=== PATIENT | female | born 1945 | race Caucasian/White ===

== ENCOUNTER → 2017-08-12 | Outpatient (CLI) | payer OTHER ==
[~2017-08-12] MED LIST: ADULT LOW DOSE81 MG; ASPIR 8181 MG PO; AZITHROMYCIN 2250 MG PO; LEVAQUIN 500 M500 MG PO; LISINOPRIL2.5 MG PO; LIVALO1 MG; NEURONTIN100 MG PO; NITROGLYCERIN0.4 MG SL; NORCO 5-325 TA1 EACH PO; PAIN & FEVER325 MG PO; PLAVIX 75 MG TA75 MG PO; PRINIVIL20 MG PO; REPATHA SY140 MG/1 M INJECTION; SYNTHROID100 MC1 PO; TESSALON200 MG PO; TOPROL XL50 MG PO; VENTOLIN HFA 1818 GM INH; VITAMIN D1000 UNI1; ZETIA10 MG PO; ZOLOFT100 MG; ZYRTEC
[2017-08-12 09:43] LABS: ABSOLUTE BASOPHILS 0.1 thou/uL (0.0-0.2); ABSOLUTE EOSINOPHILS 0.2 thou/uL (0.0-0.7); ABSOLUTE LYMPHOCYTES 3.6 thou/uL (0.8-5.3); ABSOLUTE MONOCYTES 0.8 thou/uL (0.0-1.2); ABSOLUTE NEUTROPHILS 3.5 thou/uL (1.6-8.1); BASOPHILS 0.8 %; EOSINOPHILS 2.8 %; HEMATOCRIT 38.9 % (37.0-47.0); HEMOGLOBIN 12.9 gm/dL (12.0-15.0); MCH 28.6 pg (26.0-34.0); MCHC 33.2 g/dL (28.0-37.0); MCV 86.2 fL (80.0-100.0); MONOCYTES 9.9 %; MPV 7.2 fl. (7.2-11.1); NUCLEATED RBCS 0 /100WBC; PLATELET COUNT* 374 thou/uL (150-400); POLYS 42.5 %; RBC 4.52 mil/uL (4.20-5.00); RDW-CV 14.4 % (10.5-14.5); WBC 8.3 thou/uL (4.0-11.0)
[2017-08-12 09:54] LABS: ALBUMIN 3.7 g/dL (3.4-5.0); ALKALINE PHOSPHATASE 83 U/L (46-116); BUN 22 mg/dL (7-18); CALCIUM 8.6 mg/dL (8.5-10.1); CHLORIDE 104 mmol/L (98-107); CHOLESTEROL 383 mg/dL (<200); CO2 30 mmol/L (21-32); DIRECT BILIRUBIN < 0.1 mg/dL (<0.1-0.3); GLUCOSE 99 mg/dL (70-99); HDL CHOLESTEROL 36 mg/dL (>40); LDL CHOLESTEROL 267 mg/dL (<100); POTASSIUM 3.8 mmol/L (3.5-5.1); SGOT 14 U/L (15-37); SGPT 19 U/L (30-65); TC:HDL 10.6 Ratio (Not establshd); TOTAL BILIRUBIN 0.2 mg/dL (<0.1-1.0); TOTAL PROTEIN 7.3 g/dL (6.4-8.2); TRIGLYCERIDE 400 mg/dL (<150); VLDL 80 mg/dL (<40)
[2017-08-12 09:55] LABS: SERUM ASSESSMENT Clear
[2017-08-12 10:12] LABS: ANION GAP 7 mmol/L (7-16); SODIUM 141 mmol/L (136-145)
== END ==
LOC: M.LAB 09:20
PROVIDERS: Internal Medicine Cardiovascular Disease
DX: E78.00 Pure hypercholesterolemia, unspecified (principal); I25.10 Atherosclerotic heart disease of native coronary artery without angina pectoris; E78.5 Hyperlipidemia, unspecified

== ENCOUNTER 2018-03-13 22:12 | Inpatient (IN) | payer OTHER ==
[~2018-03-13] VITALS: Ht 152.4 cm; Wt 64.4 kg
[~2018-03-13 22:12] MED LIST changes: -ASPIR 8181 MG PO; -NEURONTIN100 MG PO; -PRINIVIL20 MG PO; -REPATHA SY140 MG/1 M INJECTION
[2018-03-13 22:21] VITALS: BP 161/76
[2018-03-13 22:34] LABS: ABSOLUTE BASOPHILS 0.1 thou/uL (0.0-0.2); ABSOLUTE EOSINOPHILS 0.3 thou/uL (0.0-0.7); ABSOLUTE LYMPHOCYTES 3.2 thou/uL (0.8-5.3); ABSOLUTE MONOCYTES 1.3 thou/uL (0.0-1.2); ABSOLUTE NEUTROPHILS 5.8 thou/uL (1.6-8.1); BASOPHILS 1.3 %; EOSINOPHILS 2.5 %; HEMATOCRIT 40.1 % (37.0-47.0); HEMOGLOBIN 13.2 gm/dL (12.0-15.0); LYMPHOCYTES 30.3 %; MCH 27.5 pg (26.0-34.0); MCHC 32.9 g/dL (28.0-37.0); MCV 83.5 fL (80.0-100.0); MONOCYTES 11.8 %; NUCLEATED RBCS 0 /100WBC; PLATELET COUNT* 372 thou/uL (150-400); POLYS 54.1 %; RBC 4.81 mil/uL (4.20-5.00); RDW-CV 13.8 % (10.5-14.5); WBC 10.7 thou/uL (4.0-11.0)
[2018-03-13 22:42] LABS: ANION GAP 6 mmol/L (7-16); BUN 20 mg/dL (7-18); CALCIUM 8.6 mg/dL (8.5-10.1); CHLORIDE 102 mmol/L (98-107); CO2 31 mmol/L (21-32); CREATININE 1.1 mg/dL (0.6-1.3); GLUCOSE 112 mg/dL (70-99); POTASSIUM 3.7 mmol/L (3.5-5.1); SODIUM 139 mmol/L (136-145)
[2018-03-13 22:53] LABS: ALBUMIN 3.9 g/dL (3.4-5.0); ALKALINE PHOSPHATASE 103 U/L (46-116); LIPASE 194 U/L (73-393); NT-PRO BRAIN NAT PEPTIDE 317 pg/mL (<300); SGOT 14 U/L (15-37); SGPT 22 U/L (30-65); TOTAL BILIRUBIN 0.2 mg/dL (<0.1-1.0); TOTAL PROTEIN 7.8 g/dL (6.4-8.2); TROPONIN-I LEVEL <0.06 ng/mL (<0.06)
[2018-03-13 23:42] VITALS: BP 153/65
[2018-03-14] VITALS (15 sets, daily range): BP systolic 124–169; BP diastolic 55–70
[2018-03-14] MEDS ORDERED: NEURONTIN100 MG PO (02:21)
[2018-03-14] MEDS ORDERED: REPATHA SY140 MG/1 M INJECTION (02:23)
--- NOTE | 2018-03-14 05:12 | NUR ---
RECEIVED REPORT FROM SECURITY INCIDENT RESPONSE SPECIALIST, MAURILIO, AT 2320. PT ARRIVED TO UNIT VIA CART AT 2340. PT AAOX4, ORIENTED TO ROOM AND CALL LIGHT. SPOUSE AT BEDSIDE. PT VOICED PARTIAL RELIEF OF CHEST PAIN FROM NITRO PASTE. NURSING ASSESSMENT COMPLETED. PT EDUCATED ON IMPORTANCE OF BEING NPO AFTER MIDNIGHT FOR CARDIOLOGY CONSULT. PT VOICED UNDERSTANDING. CALL LIGHT WITHIN REACH. HOURLY ROUNDING COMPLETED, TRACING SINUS RHYTHM ON INSPECTOR ELEVATORS.
--- NOTE | 2018-03-14 07:15 | NUR ---
change of shift bedside report given patient seen in bed asleep assumed patient care
--- NOTE | 2018-03-14 10:44 | EKG ---
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: MANDA : 1945 Requested By: Chet Schmidt Order Number: [id number] MD: Satnam Larios Measurements Intervals [place] Rate: 70 P: 42 PA: 148 QRS: 46 QRSD: 98 T: 56 QT: 417 QTc: 450 Interpretive Statements Sinus rhythm Borderline repolarization abnormality Baseline wander in lead(s) III Compared to ECG 06/22/2013 07:44:04 no change Electronically Signed On 03-14-2018 10:44:15 CDT by Satnam Larios [email or web address] <ELECTRONICALLY SIGNED> By: Satnam Larios MD, [facility] 03/14/18 1044 2217 2217 Satnam Larios MD, [facility] /EPI
[2018-03-14 11:16] LABS: APTT 27.1 Seconds (25.0-31.3)
--- NOTE | 2018-03-14 13:13 | NUR ---
Pt out of room for cath, will f/u later
--- NOTE | 2018-03-14 15:36 | EKG ---
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
--- NOTE | 2018-03-14 17:10 | CARD ---
[address] [address] CARDIAC CATH REPORT Name: KIKE SPRAGUE Room: [address] IN [facility].#: [id number] Admission: 03/13/18 Attend Phys: Kentrell Nicholson MD Discharge: Date of : 45 Report #: [id number] THIS REPORT FOR: //name// APPROVED REPORT Study performed: 03/14/2018 12:35:09 Patient Details Patient Status: In-Patient Room #: 202 The patient is a 72 year-old female Event Personnel Satnam Larios Interior Assemblies Developer Prover, Marilyn Bunn RN Java Lead Engineer, Marlee Sandoval Monitor, Rui Mcgraw (R) Scrub Procedures Performed Art Access - R femoral artery* Left Heart Cath w/or w/o Coronaries [id number] [facility] w/wo Plasty Single RCA [id number] , Left Ventriculogram Indication Unstable angina Risk Factors Arterial Hypertension, Hypercholesterolemia, Coronary Artery Disease Previous Procedures/Diagnoses Previous PCI Admission/Lab Medications/Medications given during procedure Heparin Unfract. Procedure Narrative The patient was brought electively to the Cardiac Catheterization Laboratory and was prepped and draped in a sterile manner. The right femoral was infiltrated with 2% Lidocaine subcutaneous anesthesia. A 6fr Ultimum Sheath sheath was inserted into the right femoral artery. Coronary angiography was performed using coronary diagnostic catheters. The right coronary system was accessed and visualized with a 6fr JR 4 catheter. The left coronary system was accessed and visualized with a 6fr JL 4 catheter. The left ventricle was accessed and visualized with a 6fr Pigtail catheter. Left ventricular/Aortic Valve gradient assessed via catheter pullback. Left ventriculogram was performed in DIEHL projection. Closure device was deployed with a [address] [place] [address] CARDIAC CATH REPORT Name: KIKE SPRAGUE Room: [address]#: [id number] Admission: 03/13/18 Attend Phys: Kentrell Nicholson MD Discharge: Date of : 45 Report #: [id number] Angioseal STS 6Fr. The patient tolerated the procedure well and there were no complications associated with the procedure. There was no hematoma. Intraoperative Conscious Sedation Sedation start time: 13:32 Case end Time: 14:04 Fentanyl 25 mcg Versed 2 mg Fluoro Time: 3.7 minutes Dose: DAP 70697 cGycm2 709.85 mGy Contrast Type and Amount: Omnipaque 290 ml Coronary Angiography The patient's coronary anatomy is right dominant. Diagnostic Cath Left Main 40% ostial and 40% distal stenosis noted LAD stent in proximal lad had no restenosis. Mid and distal lad had a narrow lumen consistent with diffuse cad. A 70% mid and 70% distal stenosis was noted in the lad Circumflex 0% stenosis Right Coronary long stent noted in the proximal and mid rca. 90% restenosis noted in the mid portion of the stent. 60% stenosis noted at the acute margin of the vessel Left Ventriculography The left ventricle is normal in size with normal contractility. The left ventricular ejection fraction is estimated to be 60-65%. Left ventricular wall motion abnormalities are not present. There is 1+ mitral insufficiency. Hemodynamics The aortic pressure is 118/44 mmHg with a mean of mmHg. The left ventricular pressure is 184/25 mmHg with a mean of mmHg. The left ventricular end diastolic pressure is 25 mmHg. There was no gradient across the aortic valve upon pullback. Pullback from the left ventricle to the aorta revealed no gradient across the aortic valve. PCI Technique Lesion Anticoagulation was achieved with Heparin. Patient was preloaded with Plavix. Percutaneous coronary intervention was performed on the mid right coronary artery. The lesion stenosis prior to intervention was 90% with AGUSTÍN 3 flow. A 6Fr JR 4.0 SH Guide Catheter was used to engage the RCA ostium. A IG: JOHN 190cm [place] [address] CARDIAC CATH REPORT Name: KIKE SPRAGUE Room: [address]#: [id number] Admission: 03/13/18 Attend Phys: Kentrell Nicholson MD Discharge: Date of : 45 Report #: [id number] used to cross the lesion. BALLOON DILATION A Balloon catheter Trek RX 2.5 X 8 was inserted and inflated up to 16.00atm for 17seconds. Repeat angiography revealed the following post-dilatation results: 50% stenosis. STENT DEPLOYMENT A drug-eluting stent Xience Alpine RX 2.75X15 was inserted and inflated up to 9.00atm for 8seconds. Repeat angiography revealed the following post-stent deployment results: 0% stenosis. Additional Inflation: 10.00atm for 12seconds. Additional Inflation: 15.00atm for 10seconds. 17 TORIBIO x 14 seconds 20 TORIBIO x 8 seconds Final angiography reveals 0 % stenosis with AGUSTÍN 3 flow. Conclusion 1. no restenosis noted of a stent in the proximal lad, although the mid and distal lad had a narrow lumen with a 70% stenosis noted in the mid lad, and a 70% stenosis noted in the distal lad 2. 90% restenosis noted in the mid portion of a stent in the mid rca 3. successful placement of a single drug eluting stent in the mid rca Recommendations Cardiac Rehabilitation Referral Aggressive Medical Therapy Medications Administered Clopidogrel <ELECTRONICALLY SIGNED> By: Satnam Larios MD, [facility] 03/14/181708 08 08Satnam Larios MD, [facility] /INF
--- NOTE | 2018-03-14 17:21 | NUR ---
ASSUMED CARE OF PT AT 1600 FROM JOAN PARTIDA. READ AND AGREE WITH HER ASSESSMENT. PT HAS CONT TO LAY FLAT R/T POST CATH. SHE HAS NO C/O PAIN. FAMILY IS AT BEDSIDE. PT STATES SHE FEELS BETTER THAN SHE HAS FOR AWHILE. BED IS IN LOW POSITION CALL LIGHT IS IN REACH.
--- NOTE | 2018-03-14 19:45 | NUR ---
RECEIVED REPORT AND ASSUMED CARE OF PT, ASSESSMENT COMPLETED. RT GROIN DRSG SATURATED, NO NEW DRAINAGE. INSTRUCTED ON MONITORING OF SITE FOR INCREASE DRAINAGE, FEELING WARM OR IF SHE FEELS WOZZY. TELEMETRY ON SHOWING SR. PT STATES SHE IS TIRED AND WANTS TO TAKE A NAP. WILL CONT TO MONITOR AND ASSIST NEEDED.
[2018-03-15] VITALS: BP 126/54
[2018-03-15 04:00] VITALS: BP 134/56
[2018-03-15 05:10] LABS: HEMATOCRIT 35.2 % (37.0-47.0); HEMOGLOBIN 11.6 gm/dL (12.0-15.0); MCH 27.9 pg (26.0-34.0); MCV 84.6 fL (80.0-100.0); MPV 7.3 fl. (7.2-11.1); RBC 4.16 mil/uL (4.20-5.00); RDW-CV 13.9 % (10.5-14.5)
[2018-03-15 05:36] LABS: CHOLESTEROL 345 mg/dL (<200); HDL CHOLESTEROL 34 mg/dL (>40); LDL CHOLESTEROL 260 mg/dL (<100); TC:HDL 10.1 Ratio (Not establshd); TRIGLYCERIDE 255 mg/dL (<150); TROPONIN-I LEVEL 0.17 ng/mL (<0.06); VLDL 51 mg/dL (<40)
[2018-03-15 05:44] LABS: SERUM ASSESSMENT Slight Lipemia
--- NOTE | 2018-03-15 06:52 | NUR ---
SLEPT WELL TONIGHT. RT GROIN DRSG CHANGED. NO BLEEDING FROM PUNCTURE SITE, FIRM ECCHYMOTIC AREA NOTED. BANDAID APPLIED. PT HAS REMAINED IN BED ALL NIGHT EXCEPT TO BR X1. IVF CONVERTED TO SL. TELEMETRY SHOWING SR/SB. PT STATES "YOU DON'T EVEN KNOW HOW MUCH BETTER I FEEL". HS GOALS OF REST AND SAFETY ACHIEVED. HOURLY ROUNDING OBSERVED.
--- NOTE | 2018-03-15 07:15 | NUR ---
CHNAGE OF SHIFT BEDSIDE REPORT GIVEN PATIENT SEEN AT BEDSIDE, IN BED ASLEEP ASSUMED PATIENT
[2018-03-15 08:00] VITALS: BP 152/52
--- NOTE | 2018-03-15 11:09 | EKG ---
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1945 Requested By: Satnam Larios Order Number: [id number] MD: Gualberto Resendiz Measurements Intervals [place] Rate: 65 P: 38 NV: 154 QRS: 17 QRSD: 88 T: 43 QT: 437 QTc: 455 Interpretive Statements Sinus rhythm Low voltage, precordial leads Compared to ECG 03/14/2018 14:58:57 Low QRS voltage now present Electronically Signed On 03-15-2018 11:09:47 CDT by Gualberto Resendiz [email or web address] <ELECTRONICALLY SIGNED> By: Gualberto Resendiz MD, [facility] 03/15/18 9999 0840 0840 Gualberto Resendiz MD, [facility] /EPI
--- NOTE | 2018-03-15 11:15 | CON ---
[address] [address] CONSULTATION Name: KIKE SPRAGUE Room: [address] IN [facility]#: [id number] Admission: 03/13/18 Attend Phys: Kentrell Nicholson MD Discharge: Date of : 45 Report #: [id number] THIS REPORT FOR: //name// CC: Kentrell Gutierrez DO HISTORY OF PRESENT ILLNESS: The patient is a 72-year-old white female who I was asked to see in the hospital today after she complained of chest pain. The history was obtained from the patient as well as some old records. The patient noted that in about 1999, she is having chest pain. She apparently had a single coronary stent placed by Dr. Olmedo at [facility]. She had been followed by the [facility]. She was actually admitted to [place] in June 2013 after an episode of chest pain. I saw her in consultation. She ruled in for a non-STEMI with a troponin of 2.86. I performed a cardiac catheterization from the right femoral artery. She developed spasm of the right radial artery and therefore the procedure was performed from the right femoral artery. She was found to have normal left ventricular function with an ejection fraction of 60%. There was a 90% narrowing of the proximal right coronary artery. There was a stent in the proximal LAD that had no restenosis. The diagonal branch had an 80% ostial stenosis. I then placed a drug-eluting stent in the proximal right coronary artery. She tolerated this well. I last saw her in the clinic in August when she was doing well. Her last nuclear stress test in 2016, showed no significant ischemia. However, recently she has been having recurrent chest pain. It is not necessarily related to exertion or meals. She felt a tightness and it made her short of breath. It is usually relieved with nitroglycerin. She has had no nausea or sweats. The pain is not related to food. She has had no belch with the episode. Denied any fever, cough, or bleeding. She has had no trauma or rash in her chest. She does become short of breath with exertion. She notes occasional flutter in her chest, but no syncope. After an episode last night, she came to the hospital and was admitted. PAST MEDICAL HISTORY: Significant for tonsillectomy, appendectomy, cataract extraction, hypertension, and hyperlipidemia. She was intolerant of statin drugs, now goes to the [facility] at and receives Repatha injections. There is no history of diabetes. CURRENT MEDICATIONS: Consist of Plavix, Repatha, Synthroid, lisinopril, metoprolol, Singulair, Zoloft, and TriCor. ALLERGIES: She has intolerance to PENICILLIN AND CODEINE. FAMILY HISTORY: Positive for heart disease. SOCIAL HISTORY: She is . She and her live in [place]. Neither of one is working at this time. She [place] [address] CONSULTATION Name: KIKE SPRAGUE Room: [address]#: [id number] Admission: 03/13/18 Attend Phys: Kentrell Nicholson MD Discharge: Date of : 45 Report #: [id number] alcohol abuse. REVIEW OF SYSTEMS: She has had no history of stroke, previous carotid Doppler study showed no significant stenosis. She has had asthma previously. No history of peptic ulcer disease, liver disease, kidney disease, cancer, psychiatric illness, or chronic skin condition. PHYSICAL EXAMINATION: GENERAL: Revealed an elderly female, lying in bed. She appeared in no distress. VITAL SIGNS: She had a blood pressure of 150/60, pulse 60, she is afebrile. HEENT: She was anicteric. Conjunctivae are pink. Mucous membranes are moist. NECK: Veins nondistended. No carotid bruits. Neck supple. CHEST: Clear to auscultation. HEART: Regular rate and rhythm. ABDOMEN: Soft and nontender. EXTREMITIES: Had no edema. Posterior tibial pulse 1+ bilaterally. SKIN: Warm and dry. NEUROLOGIC: Nonfocal. Her ECG showed a sinus rhythm, nonspecific ST-segment changes. Her x-ray last night showed normal heart size, calcified granuloma. Her lab work, sodium 139, creatinine 1.1, glucose 112. Liver function studies were normal. Troponin 0.06. Lab work in August included cholesterol 383, triglyceride 400, HDL 36, LDL 267. White blood cell count 10.7, hemoglobin 13.2, platelet count 372. IMPRESSION AND RECOMMENDATIONS: 1. Unstable angina. Recommend repeat cardiac catheterization. 2. Hypertension. The patient has been on a beta tori and AMY inhibitor. 3. Hyperlipidemia. The patient is in the Lipid Clinic at . <ELECTRONICALLY SIGNED> By: Satnam Larios MD, [facility] 03/15/18 1115 0946 1619Daleah Larios MD, FACC /nt
[2018-03-15 11:19] VITALS: BP 132/69
[2018-03-15] MEDS ORDERED: PRINIVIL20 MG PO (11:31)
[2018-03-15 12:10] VITALS: BP 161/63
[2018-03-15] MEDS ORDERED: ASPIR 8181 MG PO (12:17)
--- NOTE | 2018-03-15 12:35 | NUR ---
DISCHARGE TO HOME INSTRUCTIONS GIVEN, ACKNOWLEDGED, AND SIGNED COPIES GIVEN IV AND HEART MONITOR REMOVED PERSONAL BELONGINGS RETURNED ASSITED OUT VIA WC TO WAITING CAR, GOOD CONDITION
== END 2018-03-15 12:35 | disposition home or self-care (01) | DRG 247 ==
LOC: M.ERS 22:12 → M.TBA-ER 23:06 → M.2W 23:06
PROVIDERS: Emergency Medicine Emergency Medical Services; Internal Medicine Cardiovascular Disease; ADMIT Internal Medicine
PROC: B2151ZZ Fluoroscopy of Left Heart using Low Osmolar Contrast (ICD-10-PCS; principal; 2018-03-14)
PROC: 4A023N7 Measurement of Cardiac Sampling and Pressure, Left Heart, Percutaneous Approach (ICD-10-PCS; principal; 2018-03-14)
PROC: B2111ZZ Fluoroscopy of Multiple Coronary Arteries using Low Osmolar Contrast (ICD-10-PCS; principal; 2018-03-14)
PROC: 027034Z Dilation of Coronary Artery, One Artery with Drug-eluting Intraluminal Device, Percutaneous Approach (ICD-10-PCS; principal; 2018-03-14)
DX: T82.855A Stenosis of coronary artery stent, initial encounter (principal); I25.110 Atherosclerotic heart disease of native coronary artery with unstable angina pectoris; I50.32 Chronic diastolic (congestive) heart failure; I13.0 Hypertensive heart and chronic kidney disease with heart failure and stage 1 through stage 4 chronic kidney disease, or unspecified chronic kidney disease; E78.00 Pure hypercholesterolemia, unspecified; N18.3 Chronic kidney disease, stage 3 (moderate); E05.00 Thyrotoxicosis with diffuse goiter without thyrotoxic crisis or storm; J32.9 Chronic sinusitis, unspecified; Y83.8 Other surgical procedures as the cause of abnormal reaction of the patient, or of later complication, without mention of misadventure at the time of the procedure; Y92.89 Other specified places as the place of occurrence of the external cause; Z90.49 Acquired absence of other specified parts of digestive tract; Z87.891 Personal history of nicotine dependence; Z79.02 Long term (current) use of antithrombotics/antiplatelets; Z79.899 Other long term (current) drug therapy; Z88.0 Allergy status to penicillin; Z88.5 Allergy status to narcotic agent; Z82.49 Family history of ischemic heart disease and other diseases of the circulatory system

== ENCOUNTER → 2019-02-07 | Outpatient (CLI) | payer OTHER ==
[~2019-02-07] MED LIST changes: +ASPIR 8181 MG PO; +NEURONTIN100 MG PO; +PRINIVIL20 MG PO; +REPATHA SY140 MG/1 M INJECTION
--- NOTE | 2019-02-07 15:24 | 2DMMODE ---
[place] [address] 2 D/M-MODE ECHOCARDIOGRAM Name: KIKE SPRAGUE Room: [facility]#: [id number] Admission: 02/07/19 Attend Phys: Aissatou Piper MD Discharge: Date of : 45 Date of Service: 02/07/19 1524 Report #: [id number] THIS REPORT FOR: //name// APPROVED REPORT Study performed: 02/07/2019 13:54:46 EXAM: Comprehensive 2D, Doppler, and color-flow Echocardiogram BSA: 1.58 HR: 71 bpm BP: 117/78 mmHg Other Information Study Quality: Good Indications CAD Chemo 2D Dimensions IVSd: 10.39 (7-11mm) LVOT Diam: 20.37 (18-24mm) LVDd: 39.87 mm PWd: 9.32 (7-11mm) Ascending Ao: 31.69 (22-36mm) LVDs: 21.30 (25-40mm) Aortic Root: 24.85 mm Volumes Left Atrial Volume (Systole) LA ESV Index: 16.80 mL/m2 Aortic Valve AoV Peak Aurelio.: 1.25 m/s AO Peak Gr.: 6.22 mmHg LVOT Max P.90 mmHg AO Mean Gr.: 3.04 mmHg LVOT Mean P.43 mmHg LVOT Max V: 1.11 m/s AO V2 VTI: 28.10 cm LVOT Mean V: 0.71 m/s NGA (VTI): 3.24 cm2 LVOT V1 VTI: 27.92 cm Mitral Valve E/A Ratio: 1.16 MV Decel. Time: 171.97 ms MV E Max Aurelio.: 0.82 m/s MV PHT: 49.87 ms MVA (PHT): 4.41 [place] [address] 2 D/M-MODE ECHOCARDIOGRAM Name: KIKE SPRAGUE Room: [facility]#: [id number] Admission: 02/07/19 Attend Phys: Aissatou Piper MD Discharge: Date of : 45 Date of Service: 02/07/19 1524 Report #: [id number] TDI E/Lateral E': 7.45 E/Medial E': 8.20 Medial E' Aurelio.: 0.10 m/s Lateral E' Aurelio.: 0.11 m/s Pulmonary Valve PV Peak Aurelio.: 0.90 m/s PV Peak Gr.: 3.27 mmHg Tricuspid Valve RAP Estimate: 5.00 mmHg TR Peak Gr.: 20.60 mmHg RVSP: 25.60 mmHg PA Pressure: 25.60 mmHg Left Ventricle The left ventricle is normal size. There is normal LV segmental wall motion. There is normal left ventricular wall thickness. Left ventricular systolic function is normal. LVEF is 65-70%. Transmitral Doppler flow pattern suggests impaired LV relaxation. Right Ventricle The right ventricle is normal size. The right ventricular systolic function is normal. Atria The left atrium size is normal. The right atrium size is normal. Aortic Valve Aortic valve is mildly calcified. No aortic regurgitation is present. There is no aortic valvular stenosis. Mitral Valve The mitral valve is normal in structure. Mild mitral regurgitation. No evidence of mitral valve stenosis. Tricuspid Valve The tricuspid valve is normal in structure. Mild tricuspid regurgitation. No pulmonary hypertension. Pulmonic Valve The pulmonary valve is normal in structure. There is no pulmonic valvular regurgitation. Great Vessels The aortic root is normal in size. IVC [place] [address] 2 D/M-MODE ECHOCARDIOGRAM Name: KIKE SPRAGUE Room: [facility] Leonardo#: [id number] Admission: 02/07/19 Attend Phys: Aissatou Piper MD Discharge: Date of : 45 Date of Service: 02/07/19 1524 Report #: [id number] collapses >50% with inspiration. Pericardium There is no pericardial effusion. <Conclusion> The left ventricle is normal size. There is normal left ventricular wall thickness. Left ventricular systolic function is normal. LVEF is 65-70%. Transmitral Doppler flow pattern suggests impaired LV relaxation. Mild mitral regurgitation. Mild tricuspid regurgitation. No pulmonary hypertension. IVC is normal in size and collapses >50% with inspiration. <ELECTRONICALLY SIGNED> By: Ceasar Frausto MD, [facility] 02/07/19 1524 1524 1524 Ceasar Frausto MD, [facility] /INF
== END ==
LOC: M.CRD 13:38
DX: I08.3 Combined rheumatic disorders of mitral, aortic and tricuspid valves (principal); I25.10 Atherosclerotic heart disease of native coronary artery without angina pectoris; C50.412 Malignant neoplasm of upper-outer quadrant of left female breast; C43.59 Malignant melanoma of other part of trunk; Z17.0 Estrogen receptor positive status [ER+]

== ENCOUNTER → 2020-01-23 | Outpatient (CLI) | payer OTHER ==
--- NOTE | 2020-01-23 17:13 | 2DMMODE ---
[place] [address] 2 D/M-MODE ECHOCARDIOGRAM Name: KIKE SPRAGUE Room: [facility]#: [id number] Admission: 01/23/20 Attend Phys: Physician not on s Discharge: Date of : 45 Date of Service: 01/23/20 1712 Report #: [id number] THIS REPORT FOR: cc: Tyler Gutierrez Steve T. DO Liston, Michael J. MD [facility] ~ APPROVED REPORT Study performed: 01/23/2020 08:08:24 EXAM: Comprehensive 2D, Doppler, and color-flow Echocardiogram Patient Location: Out-Patient BSA: 1.55 HR: 66 bpm BP: 130/70 mmHg Other Information Study Quality: Good Indications Malignant melanoma 2D Dimensions IVSd: 9.97 (7-11mm) LVOT Diam: 18.79 (18-24mm) LVDd: 39.08 mm PWd: 6.81 (7-11mm) Ascending Ao: 27.91 (22-36mm) LVDs: 21.93 (25-40mm) Aortic Root: 26.48 mm Volumes Left Atrial Volume (Systole) LA ESV Index: 15.60 mL/m2 Aortic Valve AoV Peak Aurelio.: 1.86 m/s AO Peak Gr.: 13.90 mmHg LVOT Max P.29 mmHg AO Mean Gr.: 7.23 mmHg LVOT Mean P.27 mmHg LVOT Max V: 1.15 m/s AO V2 VTI: 40.02 cm LVOT Mean V: 0.68 m/s NGA (VTI): 1.70 cm2 LVOT V1 VTI: 24.51 cm Mitral Valve E/A Ratio: 1.01 [place] [address] 2 D/M-MODE ECHOCARDIOGRAM Name: KIKE SPRAGUE Room: [facility]#: [id number] Admission: 01/23/20 Attend Phys: Physician not on s Discharge: Date of : 45 Date of Service: 01/23/20 1712 Report #: [id number] MV Decel. Time: 174.04 ms MV E Max Aurelio.: 0.66 m/s MV PHT: 50.47 ms MVA (PHT): 4.36 cm2 TDI E/Lateral E': 6.60 E/Medial E': 6.60 Medial E' Aurelio.: 0.10 m/s Lateral E' Aurelio.: 0.10 m/s Pulmonary Valve PV Peak Aurelio.: 0.93 m/s PV Peak Gr.: 3.43 mmHg Tricuspid Valve RAP Estimate: 5.00 mmHg TR Peak Gr.: 22.49 mmHg RVSP: 27.49 mmHg PA Pressure: 27.49 mmHg Left Ventricle The left ventricle is normal size. There is normal LV segmental wall motion. There is normal left ventricular wall thickness. Left ventricular systolic function is normal. LVEF is 65-70%. Transmitral Doppler flow pattern suggests impaired LV relaxation. Right Ventricle The right ventricle is normal size. The right ventricular systolic function is normal. Atria The left atrium size is normal. The right atrium size is normal. Aortic Valve Aortic valve is mildly calcified. No aortic regurgitation is present. There is no aortic valvular stenosis. Mitral Valve The mitral valve is normal in structure. There is no mitral valve regurgitation noted. No evidence of mitral valve stenosis. Tricuspid Valve The tricuspid valve is normal in structure. Mild tricuspid regurgitation. The RVSP is 30 mmHg. Pulmonic Valve The pulmonary valve is normal in structure. [place] [address] 2 D/M-MODE ECHOCARDIOGRAM Name: KIKE SPRAGUE Room: [facility]#: [id number] Admission: 01/23/20 Attend Phys: Physician not on s Discharge: Date of : 45 Date of Service: 01/23/20 1712 Report #: [id number] normal in structure. There is no pulmonic valvular regurgitation. Great Vessels The aortic root is normal in size. IVC is normal in size and collapses >50% with inspiration. Pericardium There is no pericardial effusion. <Conclusion> The left ventricle is normal size. There is normal left ventricular wall thickness. Left ventricular systolic function is normal. LVEF is 65-70%. Transmitral Doppler flow pattern suggests impaired LV relaxation. Aortic valve is mildly calcified. There is no aortic valvular stenosis. Mild tricuspid regurgitation. The RVSP is 30 mmHg. IVC is normal in size and collapses >50% with inspiration. <ELECTRONICALLY SIGNED> By: Ceasar Frausto MD, [facility] 01/23/201711 11 11 Ceasar Frausto MD, FACC /INF
== END ==
LOC: M.CRD 08:00
PROVIDERS: ATTEND Student in an Organized Health Care Education/Training Program
DX: I07.1 Rheumatic tricuspid insufficiency (principal); C43.59 Malignant melanoma of other part of trunk

== ENCOUNTER 2020-04-10 10:46 | Inpatient (IN) | payer OTHER ==
[~2020-04-10] VITALS: Ht 152.4 cm; Wt 63.0 kg
[2020-04-10] VITALS (39 sets, daily range): BP systolic 47–225; BP diastolic 23–192
--- NOTE | ~2020-04-10 | EKG ---
[place] [address] ELECTROCARDIOGRAM REPORT Name: KIKE SPRAGUE Room: [address] ADM IN ..#: [id number] Admission: 04/10/20 Attend Phys: Mathieu Ramirez, Discharge: Date of : 45 Date of Service: 04/10/20 1056 Report #: [id number] THIS REPORT FOR: //name// [facility] ED Test Date: 2020-04-10 Test Time: 10:56:02 Pat Name: KIKE SPRAGUE Department: Room: [address] Gender: F Broomcorn Scraper: : 1945 Requested By: Satnam Larios Order Number: [id number] Reading MD: Measurements Intervals [place] Rate: 137 P: CT: QRS: -75 QRSD: 132 T: 111 QT: 368 QTc: 556 Interpretive Statements Atrial fibrillation Ventricular tachycardia, unsustained Right bundle branch block LVH with secondary repolarization abnormality Inferior infarct, acute Extensive anterior infarct, acute (LAD) Compared to ECG 03/15/2018 08:40:43 Ventricular tachycardia now present Right bundle-branch block now present Left ventricular hypertrophy now present Early repolarization now present Myocardial infarct finding now present [email or web address] By: 1056 1056 Epiphany EpiphanyMD /ALMA
[2020-04-10 11:22] LABS: ABSOLUTE BASOPHILS 0.1 thou/uL (0.0-0.2); ABSOLUTE EOSINOPHILS 0.1 thou/uL (0.0-0.7); ABSOLUTE LYMPHOCYTES 2.2 thou/uL (0.8-5.3); ABSOLUTE MONOCYTES 1.4 thou/uL (0.0-1.2); ABSOLUTE NEUTROPHILS 7.6 thou/uL (1.6-8.1); BASOPHILS 1.3 %; EOSINOPHILS 0.5 %; HEMATOCRIT 41.8 % (37.0-47.0); LYMPHOCYTES 19.6 %; MCH 28.3 pg (26.0-34.0); MCHC 33.6 g/dL (28.0-37.0); MCV 84.4 fL (80.0-100.0); MPV 6.9 fl. (7.2-11.1); NUCLEATED RBCS 0 /100WBC; PLATELET COUNT* 524 thou/uL (150-400); POLYS 66.6 %; RBC 4.95 mil/uL (4.20-5.00); RDW-CV 16.4 % (10.5-14.5); WBC 11.3 thou/uL (4.0-11.0)
[2020-04-10 11:31] LABS: INR 1.1; PROTIME 11.3 Seconds (9.20-11.50)
[2020-04-10 11:45] LABS: CALCIUM 8.1 mg/dL (8.5-10.1); CREATININE 0.8 mg/dL (0.6-1.3); POTASSIUM 3.3 mmol/L (3.5-5.1)
[2020-04-10 11:55] LABS: ALBUMIN 2.6 g/dL (3.4-5.0); TOTAL BILIRUBIN 0.5 mg/dL (<0.1-1.0); TOTAL PROTEIN 6.9 g/dL (6.4-8.2)
[2020-04-10 14:34] LABS: ABSOLUTE BASOPHILS 0.2 thou/uL (0.0-0.2); ABSOLUTE EOSINOPHILS 0.1 thou/uL (0.0-0.7); ABSOLUTE LYMPHOCYTES 5.4 thou/uL (0.8-5.3); ABSOLUTE MONOCYTES 1.7 thou/uL (0.0-1.2); ABSOLUTE NEUTROPHILS 8.6 thou/uL (1.6-8.1); BASOPHILS 1.2 %; EOSINOPHILS 0.5 %; HEMATOCRIT 39.2 % (37.0-47.0); HEMOGLOBIN 12.9 gm/dL (12.0-15.0); LYMPHOCYTES 33.7 %; MCH 28.5 pg (26.0-34.0); MCV 86.3 fL (80.0-100.0); MONOCYTES 10.5 %; MPV 6.9 fl. (7.2-11.1); NUCLEATED RBCS 0 /100WBC; PLATELET COUNT* 492 thou/uL (150-400); POLYS 54.1 %; RBC 4.55 mil/uL (4.20-5.00); RDW-CV 16.4 % (10.5-14.5); WBC 15.9 thou/uL (4.0-11.0)
[2020-04-10 14:38] LABS: BE -10.1 mmol/L (-2 to +3); PCO2 31.3 mmHg (35.0-45.0); pH 7.301 (7.340-7.450)
[2020-04-10 14:38] LABS: CALCIUM 7.6 mg/dL (8.5-10.1); CREATININE 1.2 mg/dL (0.6-1.3); POTASSIUM 3.7 mmol/L (3.5-5.1)
[2020-04-10 14:40] LABS: PO2 299.1 mmHg (75.0-100.0)
[2020-04-10 16:56] LABS: INR 1.1; PROTIME 11.5 Seconds (9.20-11.50)
[2020-04-10 17:05] LABS: APTT 38.5 Seconds (25.0-31.3)
--- NOTE | 2020-04-10 17:42 | EKG ---
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1945 Requested By: Sri Travis Order Number: [id number] MD: Satnam Larios Measurements Intervals [place] Rate: 44 P: 0 CA: 81 QRS: -58 QRSD: 158 T: 121 QT: 590 QTc: 505 Interpretive Statements junctional rhythm Multiform ventricular premature complexes nonspecific st changes left axis Baseline wander in lead(s) II,aVF Compared to ECG 03/15/2018 08:40:43 Ventricular premature complex(es) now present Sinus rhythm no longer present Electronically Signed On 04-10-2020 17:42:05 CDT by Satnam Larios [email or web address] <ELECTRONICALLY SIGNED> By: Satnam Larios MD, [facility] 04/10/20 1742 1251 1251 Satnam Larios MD, [facility] /EPI
--- NOTE | 2020-04-10 17:43 | EKG ---
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1945 Requested By: Satnam Larios Order Number: [id number] Reading MD: Satnam Larios Measurements Intervals [place] Rate: 44 P: MA: QRS: -63 QRSD: 159 T: 115 QT: 620 QTc: 531 Interpretive Statements complete heart block nonspecific st segment changes Baseline wander in lead(s) II,III,aVR,aVF Compared to ECG 04/10/2020 12:51:30 Sinus bradycardia no longer present Ventricular premature complex(es) no longer present Electronically Signed On 04-10-2020 17:43:19 CDT by Satnam Larios [email or web address] <ELECTRONICALLY SIGNED> By: Satnam Larios MD, FAC 04/10/20 1743 1252 1252 Satnam Larios MD, [facility] /EPI
[2020-04-10 19:21] LABS: BE -9.7 mmol/L (-2 to +3); PCO2 40.1 mmHg (35.0-45.0); PO2 99.3 mmHg (75.0-100.0)
[2020-04-10 19:23] LABS: pH 7.246 (7.340-7.450)
--- NOTE | 2020-04-10 19:27 | CARD ---
[address] [address] CARDIAC CATH REPORT Name: KIKE SPRAGUE Room: [address] IN [facility]#: [id number] Admission: 04/10/20 Attend Phys: Mathieu Ramirez MD Discharge: Date of : 45 Report #: [id number] THIS REPORT FOR: //name// cc: Tyler Gutierrez Steve T. DO ~ APPROVED REPORT Study performed: 04/10/2020 11:00:50 Patient Details Patient Status: ED Room #: The patient is a 74 year-old female Event Personnel Satnam Larios Egg Breaker, Elie Ferguson RN Linen Sorter, Deejay Rodríguez JITNEY DRIVER Monitor, Katy Perdomo RTR Scrub Procedures Performed Left Heart Cath w/or w/o Coronaries [id number] [facility] Revasc AMI Total/Sub Single RCA C9606 AMIREVSING Hemostasis w/ Angioseal. Direct cardioversion of a wide complex tachycardia with 200 J energy. Indication Abnormal ECG, Chest pain Risk Factors Hypercholesterolemia, Coronary Artery DiseaseHypertension Previous Procedures/Diagnoses Previous PCI Admission/Lab Medications/Medications given during procedure Glycoprotein IllbIlla Inhibitors, Heparin Unfract., Lidocaine Subcut 15 ml, Digoxin IV 0.5 mg, Heparin IV 6000 units, Integrilin IV 5.2 mcg per kg, Heparin IV 6000 units, Fentanyl IV 25 mcg, Adenosine IV 6 mg, Plavix PO 600 mg, Cardizem IV 10 mg, Cardizem IV 5 mg per kg per min Procedure Narrative The patient was brought emergently to the Cardiac Catheterization Laboratory and was prepped and draped in a sterile manner. The right femoral was infiltrated with 2% Lidocaine subcutaneous anesthesia. A [place] 6 FR sheath was inserted into the [place] [address] CARDIAC CATH REPORT Name: KIKE SPRAGUE Room: [address] IN [facility].#: [id number] Admission: 04/10/20 Attend Phys: Mathieu Ramirez MD Discharge: Date of : 45 Report #: [id number] Coronary angiography was performed using coronary diagnostic catheters. The right coronary system was accessed and visualized with a Diagnostic JR4 5Fr catheter. The left coronary system was accessed and visualized with a Diagnostic JL4 5Fr catheter. The left ventricle was accessed and visualized with a Diagnostic Pigtail 6Fr catheter. Left ventricular/Aortic Valve gradient assessed via catheter pullback. Left ventriculogram was performed in DIEHL projection. Closure device was deployed with a 6 Fr Angioseal. The patient tolerated the procedure well and there were no complications associated with the procedure. There was no hematoma. At the end of the procedure, the patient developed a wide complex tachycardia. The patient was cardioverted with 200 J direct current energy. A 6 frisian sheath was placed in the right femoral vein to administer IV amiodarone. Intraoperative Conscious Sedation Sedation start time: 1124 Case end Time: 1208 Fentanyl 25 mcg Fluoro Time: 4.5 minutes Dose: DAP 22404 cGycm2 735.04 mGy Contrast Type and Amount: Visipaque 115 ml Coronary Angiography The patient's coronary anatomy is right dominant. Diagnostic Cath Left Main 50% ostial stenosis LAD stent in proximal lad had 0% stenosis. 60% stenosis was noted in the mid lad Circumflex 0% stenosis Right Coronary Ostial 60% stenosis noted. Stent in proximal rca had a 70% stenosis in the distal portion of the stent. 70% stenosis was noted in the distal rca. Left Ventriculography The left ventricle is normal in size with normal contractility. The left ventricular ejection fraction is estimated to be 50-55%. Left ventricular wall motion abnormalities are not present. There is no mitral insufficiency. Hemodynamics The aortic pressure is 104/63 mmHg with a mean of 77 mmHg. The left ventricular pressure is 125/10 mmHg with a mean of mmHg. The left ventricular end diastolic pressure is 16 mmHg. There was no gradient across the aortic valve upon pullback. [place] [address] CARDIAC CATH REPORT Name: KIKE SPRAGUE Room: [address] IN .#: [id number] Admission: 04/10/20 Attend Phys: Mathieu Ramirez MD Discharge: Date of : 45 Report #: [id number] ventricle to the aorta revealed no gradient across the aortic valve. PCI Technique Lesion Anticoagulation was achieved with Heparin. bolus of iv aggrastat given Percutaneous coronary intervention was performed on the mid right coronary artery. The lesion stenosis prior to intervention was 70% with AGUSTÍN 3 flow. A 6FR 3DRC SH Guide Catheter was used to engage the Right ostium. A IG: BMW 190cm Interventional Guidewire was used to cross the lesion. BALLOON DILATION A Balloon catheter Trek RX 2.5 X 12 was inserted and inflated up to 8.00atm for 14seconds. Repeat angiography revealed the following post-dilatation results: 50% stenosis. Additional Inflation: 8.00atm for 10seconds. Additional Inflation: 8.00atm for 9seconds. STENT DEPLOYMENT A drug-eluting stent [place] RX Stent 2.5X38mm was inserted and inflated up to 12.00atm for 18seconds. Repeat angiography revealed the following post-stent deployment results: 0% stenosis. Additional Inflation: 12.00atm for 13seconds. Final angiography reveals 0 % stenosis with AGUSTÍN 3 flow. Conclusion 1. no restenosis noted in a stent in the proximal lad 2. 70% stenosis noted in the distal portion of a stent in the proximal rca, and a 70% stenosis was noted in the distal rca 3. successful placement of a drug eluting stent in the rca 4. successful cardioversion of a wide complex tachycardia at the end of the procedure by direct cardioversion. Recommendations Cardiac Rehabilitation Referral Aggressive Medical Therapy Medications Administered Clopidogrel <ELECTRONICALLY SIGNED> By: Satnam Larios MD, [facility] 04/10/201926 26 26Davikendrick Larios MD, FAC /INF
[2020-04-10 20:24] LABS: HEMATOCRIT 33.2 % (37.0-47.0); HEMOGLOBIN 11.2 gm/dL (12.0-15.0); MCH 28.6 pg (26.0-34.0); MCHC 33.7 g/dL (28.0-37.0); MCV 84.7 fL (80.0-100.0); MPV 6.8 fl. (7.2-11.1); NUCLEATED RBCS 0 /100WBC; PLATELET COUNT* 467 thou/uL (150-400); RBC 3.91 mil/uL (4.20-5.00); RDW-CV 16.2 % (10.5-14.5); WBC 19.6 thou/uL (4.0-11.0)
[2020-04-10 20:33] LABS: APTT 27.1 Seconds (25.0-31.3); INR 1.1; PROTIME 11.3 Seconds (9.20-11.50)
[2020-04-10 20:44] LABS: CALCIUM 6.6 mg/dL (8.5-10.1); MAGNESIUM 1.8 mg/dL (1.8-2.4); PHOSPHORUS* 3.9 mg/dL (2.5-4.9); POTASSIUM 4.2 mmol/L (3.5-5.1)
[2020-04-10 21:04] LABS: ABSOLUTE LYMPHOCYTES 1.4 thou/uL (0.8-5.3); ABSOLUTE MONOCYTES 1.6 thou/uL (0.0-1.2); ABSOLUTE NEUTROPHILS 16.7 thou/uL (1.6-8.1)
[2020-04-10 21:05] LABS: ANISOCYTOSIS 1+; CLUMPED PLTS FEW; OVALOCYTES Occasional; PLATELET ESTIMATE INCREASED
[2020-04-11] VITALS (94 sets, daily range): BP systolic 41–238; BP diastolic 16–134
[2020-04-11 05:18] LABS: ABSOLUTE BASOPHILS 0.1 thou/uL (0.0-0.2); ABSOLUTE LYMPHOCYTES 1.7 thou/uL (0.8-5.3); ABSOLUTE MONOCYTES 1.6 thou/uL (0.0-1.2); ABSOLUTE NEUTROPHILS 11.6 thou/uL (1.6-8.1); BASOPHILS 0.5 %; HEMATOCRIT 33.4 % (37.0-47.0); HEMOGLOBIN 11.3 gm/dL (12.0-15.0); LYMPHOCYTES 11.5 %; MCH 28.5 pg (26.0-34.0); MONOCYTES 10.7 %; MPV 7.1 fl. (7.2-11.1); NUCLEATED RBCS 0 /100WBC; PLATELET COUNT* 403 thou/uL (150-400); POLYS 77.3 %; RBC 3.98 mil/uL (4.20-5.00); RDW-CV 16.3 % (10.5-14.5)
[2020-04-11 05:32] LABS: ALBUMIN 1.9 g/dL (3.4-5.0); ALKALINE PHOSPHATASE 50 U/L (46-116); ANION GAP 13 mmol/L (7-16); BUN 18 mg/dL (7-18); CALCIUM 6.4 mg/dL (8.5-10.1); CHLORIDE 105 mmol/L (98-107); CHOLESTEROL 322 mg/dL (<200); CO2 18 mmol/L (21-32); GLUCOSE 135 mg/dL (70-99); HDL CHOLESTEROL 21 mg/dL (>40); LDL CHOLESTEROL 256 mg/dL (<100); POTASSIUM 3.2 mmol/L (3.5-5.1); SERUM ASSESSMENT Clear; SGOT 161 U/L (15-37); SGPT 94 U/L (30-65); SODIUM 136 mmol/L (136-145); TC:HDL 15.3 Ratio (Not establshd); TOTAL BILIRUBIN 0.2 mg/dL (<0.1-1.0); TOTAL PROTEIN 5.2 g/dL (6.4-8.2); TRIGLYCERIDE 225 mg/dL (<150); VLDL 45 mg/dL (<40)
[2020-04-11 05:33] LABS: TROPONIN-I LEVEL 18.39 ng/mL (<0.06)
[2020-04-11 08:54] LABS: BE -7.4 mmol/L (-2 to +3); PCO2 26.8 mmHg (35.0-45.0); pH 7.395 (7.340-7.450)
[2020-04-11 08:55] LABS: PO2 193.2 mmHg (75.0-100.0)
[2020-04-11 11:20] LABS: CALCIUM 6.7 mg/dL (8.5-10.1); CREATININE 1.6 mg/dL (0.6-1.3); MAGNESIUM 1.7 mg/dL (1.8-2.4)
[2020-04-11 11:25] LABS: POTASSIUM 4.2 mmol/L (3.5-5.1)
[2020-04-11 11:40] LABS: BE -17.1 mmol/L (-2 to +3); PCO2 24.8 mmHg (35.0-45.0)
[2020-04-11 11:42] LABS: PO2 208.2 mmHg (75.0-100.0); pH 7.195 (7.340-7.450)
--- NOTE | 2020-04-11 13:01 | EKG ---
[place] [address] ELECTROCARDIOGRAM REPORT Name: KIKE SPRAGUE Room: [address] IN ..#: [id number] Admission: 04/10/20 Attend Phys: Mathieu Ramirez, Discharge: Date of : 45 Date of Service: 04/10/20 1056 Report #: [id number] THIS REPORT FOR: //name// [facility] ED Test Date: 2020-04-10 Test Time: 10:56:02 Pat Name: KIKE SPRAGUE Department: Room: [address] Gender: F Java Scala Developer: : 1945 Requested By: Sri Travis Order Number: [id number] Olive MD: Ceasar Frausto Measurements Intervals [place] Rate: 137 P: RI: QRS: -75 QRSD: 132 T: 111 QT: 368 QTc: 556 Interpretive Statements Wide-complex irregular tachycardia, consider atrial fibrillation with aberrancy Compared to ECG 03/15/2018 08:40:43 Wide-complex tachycardia now present Electronically Signed On 04-11-2020 13:01:20 CDT by Ceasar Frausto [email or web address] <ELECTRONICALLY SIGNED> By: Ceasar Frausto MD, FACC 04/11/20 1301 1056 1056 Ceasar Frausto MD, [facility] /EPI
--- NOTE | 2020-04-11 13:02 | EKG ---
[place] [address] ELECTROCARDIOGRAM REPORT Name: KIKE SPRAGUE Room: [address] IN [facility]#: [id number] Admission: 04/10/20 Attend Phys: Mathieu Ramirez, Discharge: Date of : 45 Date of Service: 04/10/20 1432 Report #: [id number] THIS REPORT FOR: //name// [facility] Test Date: 2020-04-10 Test Time: 14:32:28 Pat Name: KIKE SPRAGUE Department: Room: [facility] Gender: F Inspector Final Assembly Electrical: UNKNOWN : 1945 Requested By: Satnam Larios Order Number: [id number] Olive MD: Ceasar Frausto Measurements Intervals [place] Rate: 78 P: 0 IA: 55 QRS: -37 QRSD: 149 T: 148 QT: 524 QTc: 598 Interpretive Statements Sinus rhythm Ventricular preexcitation(WPW) Nonspecific interventricular conduction delay Compared to ECG 04/10/2020 12:52:20 AV block, complete (third-degree) no longer present Electronically Signed On 04-11-2020 13:02:09 CDT by Ceasar Frausto [email or web address] <ELECTRONICALLY SIGNED> By: Ceasar Frausto MD, FACC 04/11/20 1302 1432 1432 Ceasar Frausto MD, FAC /EPI
--- NOTE | 2020-04-11 14:31 | CON ---
[address] [address] CONSULTATION Name: KIKE SPRAGUE Room: [address] IN ..#: [id number] Admission: 04/10/20 Attend Phys: Mathieu Ramirez MD Discharge: Date of : 45 Report #: [id number] THIS REPORT FOR: //name// cc: Tyler Gutierrez Steve T. DO ~ THIS REPORT FOR: //name// CC: Kentrell Gutierrez DO DATE OF SERVICE: 04/10/2020 CARDIOLOGY CONSULTATION PRIMARY CARE PHYSICIAN: Tyler Gutierrez DO HISTORY OF PRESENT ILLNESS: The patient is a 74-year-old white female who came to the Emergency Room complaining of chest pain. The patient has a long extensive complicated past medical history. She apparently had PCI to the LAD in 1999 in [facility]. She had additional stents placed in her right coronary artery in 2018 here at [place]. She has a history of breast cancer with metastasis to the brain. She recently was diagnosed with multiple myeloma. She just finished radiation therapy to the brain. She is now undergoing chemotherapy for multiple myeloma. Last therapy was 2 weeks ago. Recently, however, she has felt weak, no appetite and short of breath. She has had intermittent chest pain. Today, she was at home in bed and felt a prolonged episode of chest pain. She was brought to the hospital for further evaluation and treatment. PAST MEDICAL HISTORY: Otherwise significant for hysterectomy, tonsillectomy, appendectomy, hypertension, hyperlipidemia. She has been followed in the [facility] at in the past. She apparently had an episode of rhabdomyolysis in the past. She had been on PCSK9 injections in the past. CURRENT MEDICATIONS: Consist of the following; she is on aspirin 81 mg a day, Plavix 75 mg a day. She is on Repatha injections, Neurontin, Synthroid, lisinopril, metoprolol, Zoloft. ALLERGIES: SHE HAS AN ALLERGY TO PENICILLIN. FAMILY HISTORY: Negative for heart disease. SOCIAL HISTORY: She is . She and her live in [place]. No smoking. [place] [address] CONSULTATION Name: KIKE SPRAGUE Room: [address]#: [id number] Admission: 04/10/20 Attend Phys: Mathieu Ramirez MD Discharge: Date of : 45 Report #: [id number] REVIEW OF SYSTEMS: No history of stroke, asthma, peptic ulcer disease, liver disease, kidney disease, psychiatric illness or chronic skin condition. PHYSICAL EXAMINATION: GENERAL: Revealed an elderly female lying in bed. She appeared in mild distress. VITAL SIGNS: She had a blood pressure of 130/70, pulse is 120 and irregular. She is afebrile. HEENT: She was anicteric. Conjunctivae are pink. Mucous membranes appear dry. NECK: Veins do not appear distended. CHEST: Clear to auscultation. CARDIOVASCULAR: Irregular, tachycardia. ABDOMEN: Soft. EXTREMITIES: Had no edema. SKIN: Warm, dry. NEUROLOGIC: Nonfocal. IMAGING STUDIES: Her ECG showed what appears to represent atrial fibrillation, increased ventricular response rate with PVCs. LABORATORY WORK: Sodium 134, BUN 15, creatinine 0.8, albumin 2.6. Troponin is 14 on admission. Her white blood cell count 11.3, hemoglobin 14.0. IMPRESSION AND RECOMMENDATIONS: 1. Acute coronary syndrome. Recommend repeat cardiac catheterization. 2. Atrial fibrillation. 3. Hypertension. The patient remains on AMY inhibitor and beta tori. 4. Metastatic breast cancer, currently receiving chemotherapy. 5. History of multiple myeloma. 6. Hyperlipidemia. The patient has been on PCSK9 inhibitors. <ELECTRONICALLY SIGNED> By: Satnam Larios MD, FACC 04/11/20 1431 1228 1303Dcornelio Larios MD, FACC /nt
--- NOTE | 2020-04-11 16:03 | EKG ---
[place] [address] ELECTROCARDIOGRAM REPORT Name: KIKE SPRAGUE Room: [address] ADM IN [facility]#: [id number] Admission: 04/10/20 Attend Phys: Mathieu Ramirez, Discharge: Date of : 45 Date of Service: 04/11/20 1027 Report #: [id number] THIS REPORT FOR: //name// [facility] Test Date: 2020-04-11 Test Time: 10:27:57 Pat Name: KIKE SPRAGUE Department: Room: [address] Gender: F Meat Selector: DONE BY RN : 1945 Requested By: Satnam Larios Order Number: [id number] Olive MD: Satnam Larios Measurements Intervals [place] Rate: 57 P: MN: QRS: 50 QRSD: 143 T: 234 QT: 654 QTc: 637 Interpretive Statements junctional rhythm IVCD, consider atypical LBBB Compared to ECG 04/10/2020 14:32:28 Sinus rhythm no longer present Electronically Signed On 04-11-2020 16:03:11 CDT by Satnam Larios [email or web address] <ELECTRONICALLY SIGNED> By: Satnam Larios MD, FACC 04/11/20 1603 1027 1027 Satnam Larios MD, [facility] /EPI
[2020-04-11 17:12] LABS: BE -18.9 mmol/L (-2 to +3); PCO2 22.4 mmHg (35.0-45.0)
[2020-04-11 17:14] LABS: PO2 163.4 mmHg (75.0-100.0); pH 7.166 (7.340-7.450)
[2020-04-11 18:17] LABS: ABSOLUTE LYMPHOCYTES 1.1 thou/uL (0.8-5.3); ABSOLUTE MONOCYTES 0.4 thou/uL (0.0-1.2); ABSOLUTE NEUTROPHILS 8.6 thou/uL (1.6-8.1); BASOPHILS 0.4 %; EOSINOPHILS 0.1 %; HEMATOCRIT 25.3 % (37.0-47.0); LYMPHOCYTES 11.2 %; MCH 29.2 pg (26.0-34.0); MCHC 33.6 g/dL (28.0-37.0); MCV 86.9 fL (80.0-100.0); MONOCYTES 4.4 %; NUCLEATED RBCS 1 /100WBC; POLYS 83.9 %; RBC 2.91 mil/uL (4.20-5.00); RDW-CV 16.9 % (10.5-14.5); WBC 10.2 thou/uL (4.0-11.0)
[2020-04-11 18:27] LABS: CALCIUM 7.3 mg/dL (8.5-10.1); MAGNESIUM 2.8 mg/dL (1.8-2.4)
[2020-04-11 18:34] LABS: HEMOGLOBIN 8.5 gm/dL (12.0-15.0); PLATELET COUNT* 290 thou/uL (150-400)
[2020-04-11 18:37] LABS: POTASSIUM 5.9 mmol/L (3.5-5.1)
[2020-04-11 21:42] LABS: BE -19.3 mmol/L (-2 to +3); PCO2 23.1 mmHg (35.0-45.0)
[2020-04-11 21:45] LABS: PO2 139.3 mmHg (75.0-100.0); pH 7.151 (7.340-7.450)
[2020-04-11 21:56] LABS: APTT 78.1 Seconds (25.0-31.3); INR 2.8
[2020-04-12] VITALS (61 sets, daily range): BP systolic 54–115; BP diastolic 37–92
[2020-04-12 02:39] LABS: URINE BILIRUBIN NEGATIVE (Negative); URINE BLOOD 2+ (Negative); URINE CLARITY CLEAR; URINE COLOR YELLOW; URINE GLUCOSE-RANDOM NEGATIVE (Negative); URINE KETONES NEGATIVE (Negative); URINE LEUKOCYTES-REFLEX TRACE (Negative); URINE NITRITE-REFLEX NEGATIVE (Negative); URINE PROTEIN 1+ (Negative); URINE SPECIFIC GRAVITY 1.025 (1.005-1.030); URINE UROBILINOGEN 0.2 E.U./dl (0.2-1.0)
[2020-04-12 02:45] LABS: SQUAMOUS 0-3 Few /LPF (0-3)
[2020-04-12 02:46] LABS: BACTERIA-REFLEX >30 Many /HPF (None Seen); CELLULAR CASTS 0-3 Few /LPF (None Seen); COARSE GRANULAR CASTS 0-3 Few /LPF (None Seen); CRYSTALS None Seen /LPF (None Seen); FINE GRANULAR CASTS 0-3 Few /LPF (None Seen); HYALINE CASTS 0-3 Few /LPF (None Seen); MUCUS 4-6 Moderate strn/LPF (None Seen); URINE WBC-REFLEX 6-15 Few /HPF (0-5)
[2020-04-12 05:10] LABS: ABSOLUTE LYMPHOCYTES 1.8 thou/uL (0.8-5.3); ABSOLUTE NEUTROPHILS 13.8 thou/uL (1.6-8.1); EOSINOPHILS 0.1 %; HEMOGLOBIN 7.3 gm/dL (12.0-15.0)
[2020-04-12 05:12] LABS: ABSOLUTE BASOPHILS 0.1 thou/uL (0.0-0.2); ABSOLUTE MONOCYTES 0.7 thou/uL (0.0-1.2); BASOPHILS 0.4 %; HEMATOCRIT 23.8 % (37.0-47.0); LYMPHOCYTES 10.9 %; MCH 28.4 pg (26.0-34.0); MCHC 30.7 g/dL (28.0-37.0); MONOCYTES 4.3 %; MPV 7.7 fl. (7.2-11.1); NUCLEATED RBCS 4 /100WBC; POLYS 84.3 %; RBC 2.57 mil/uL (4.20-5.00); RDW-CV 17.3 % (10.5-14.5); WBC 16.4 thou/uL (4.0-11.0)
[2020-04-12 05:28] LABS: MCV 92.4 fL (80.0-100.0); PLATELET COUNT* 161 thou/uL (150-400)
[2020-04-12 05:36] LABS: ALBUMIN 2.7 g/dL (3.4-5.0); CREATININE 2.3 mg/dL (0.6-1.3); MAGNESIUM 2.3 mg/dL (1.8-2.4); TOTAL PROTEIN 4.3 g/dL (6.4-8.2)
[2020-04-12 05:51] LABS: POTASSIUM 4.6 mmol/L (3.5-5.1)
[2020-04-12 05:53] LABS: CALCIUM 5.4 mg/dL (8.5-10.1)
[2020-04-12 08:09] LABS: BE -16.1 mmol/L (-2 to +3); PCO2 26.8 mmHg (35.0-45.0); PO2 105.6 mmHg (75.0-100.0)
[2020-04-12 08:13] LABS: pH 7.206 (7.340-7.450)
--- NOTE | 2020-04-12 11:09 | EKG ---
[place] [address] ELECTROCARDIOGRAM REPORT Name: KIKE SPRAGUE Room: [address] ADM IN [facility]#: [id number] Admission: 04/10/20 Attend Phys: Mathieu Ramirez, Discharge: Date of : 45 Date of Service: 04/12/20 0757 Report #: [id number] THIS REPORT FOR: //name// [facility] Test Date: 2020-04-12 Test Time: 07:57:34 Pat Name: KIKE SPRAGUE Department: Room: [address] Gender: F Batchmaker: : 1945 Requested By: Satnam Larios Order Number: [id number] Olive MD: Satnam Larios Measurements Intervals [place] Rate: 72 P: 129 NM: 322 QRS: 64 QRSD: 136 T: 173 QT: 454 QTc: 497 Interpretive Statements junctional rhythm LBBB Compared to ECG 04/11/2020 10:27:57 Ventricular premature complex(es) no longer seen Electronically Signed On 04-12-2020 11:09:44 CDT by Satnam Larios [email or web address] <ELECTRONICALLY SIGNED> By: Satnam Larios MD, [facility] 04/12/20 1109 0757 0757 Satnam Larios MD, [facility] /EPI
--- NOTE | 2020-04-12 14:05 | 2DMMODE ---
[place] [address] 2 D/M-MODE ECHOCARDIOGRAM Name: KIKE SPRAGUE Room: [address] IN [facility]#: [id number] Admission: 04/10/20 Attend Phys: Mathieu Ramirez, Discharge: Date of : 45 Date of Service: 04/12/20 1405 Report #: [id number] THIS REPORT FOR: cc: Tyler Gutierrez,Tyler Domínguez,Satnam Ortiz MD [facility] ~ ADDENDUM APPROVED REPORT Study performed: 04/12/2020 10:47:17 EXAM: Comprehensive 2D, Doppler, and color-flow Echocardiogram Patient Location: In-Patient Room #: 004 Status: routine BSA: 1.55 HR: 68 bpm BP: 85/37 mmHg Rhythm: NSR Other Information Study Quality: Good Indications Acute [place] 2D Dimensions IVSd: 9.18 (7-11mm) LVOT Diam: 16.71 (18-24mm) LVDd: 38.20 mm PWd: 7.41 (7-11mm) Ascending Ao: 29.69 (22-36mm) LVDs: 31.69 (25-40mm) Aortic Root: 25.87 mm Volumes Left Atrial Volume (Systole) LA ESV Index: 31.70 mL/m2 Aortic Valve AoV Peak Aurelio.: 1.90 m/s AO Peak Gr.: 14.40 mmHg LVOT Max P.34 mmHg AO Mean Gr.: 7.38 mmHg LVOT Mean P.97 mmHg LVOT Max V: 1.04 m/s AO V2 VTI: 21.26 cm LVOT Mean V: 0.64 m/s NGA (VTI): 1.18 cm2 LVOT V1 VTI: 11.49 [place] [address] 2 D/M-MODE ECHOCARDIOGRAM Name: KIKE SPRAGUE Room: [address] IN [facility]#: [id number] Admission: 04/10/20 Attend Phys: Mathieu Ramirez, Discharge: Date of : 45 Date of Service: 04/12/20 1405 Report #: [id number] Mitral Valve MV Decel. Time: 129.24 ms MV PHT: 37.48 ms MVA (PHT): 5.87 cm2 TDI Medial E' Aurelio.: 0.05 m/s Lateral E' Aurelio.: 0.13 m/s Pulmonary Valve PV Peak Aurelio.: 1.10 m/s PV Peak Gr.: 4.84 mmHg Tricuspid Valve RAP Estimate: 5.00 mmHg TR Peak Gr.: 23.03 mmHg RVSP: 28.00 mmHg TV Max P.00 mmHg Left Ventricle The left ventricle is normal size. paradoxical septal motion consistent with a LBBB There is normal left ventricular wall thickness. Left ventricular systolic function is borderline. LVEF is 45-50%. This study is not technically sufficient to allow evaluation of the LV diastolic function due to atrial fibrillation. Right Ventricle Right ventricle is mildly dilated. The right ventricular systolic function is normal. Atria Left atrium is mildly dilated. The right atrium size is normal. Aortic Valve Aortic valve is calcified. No aortic regurgitation is present. mild aortic stenosis. Mitral Valve The mitral valve is normal in structure. Mild mitral regurgitation. No evidence of mitral valve stenosis. Tricuspid Valve The tricuspid valve is normal in structure. Mild tricuspid regurgitation. No pulmonary hypertension. Pulmonic Valve The pulmonary valve is normal in structure. [place] [address] 2 D/M-MODE ECHOCARDIOGRAM Name: KIKE SPRAGUE Room: [address]#: [id number] Admission: 04/10/20 Attend Phys: Mathieu Ramirez, Discharge: Date of : 45 Date of Service: 04/12/20 1405 Report #: [id number] valvular regurgitation. Great Vessels The aortic root is normal in size. IVC is normal in size and collapses >50% with inspiration. Pericardium There is no pericardial effusion. Small left pleural effusion. <Conclusion> LVEF is 45-50%. Left atrium is mildly dilated.. mild aortic stenosis. Mild mitral regurgitation. <ELECTRONICALLY SIGNED> By: Satnam Larios MD, [facility] 04/12/201404 04 04 Satnam Larios MD, FAC /INF
--- NOTE | 2020-04-15 08:51 | CON ---
[address] [address] CONSULTATION Name: KIKE SPRAGUE Room: [address] IN ..#: [id number] Admission: 04/10/20 Attend Phys: Mathieu Ramirez MD Discharge: 04/12/20 Date of : 45 Report #: [id number] THIS REPORT FOR: //name// cc: Tyler Gutierrez Steve T. DO THIS REPORT FOR: //name// CC: Mathieu Gutierrez DATE OF SERVICE: 04/10/2020 REQUESTING PHYSICIAN: Dr. Lane. INDICATION FOR CONSULTATION: Ventilator management. HISTORY OF PRESENT ILLNESS: This is a 74-year-old female with past medical history includes a history of breast cancer. She has had chemotherapy, also has a history of coronary artery disease and has had a previous angioplasty and stents placed. The patient does not have a known history of smoking. The patient at this time is admitted with an acute myocardial infarction. The patient's troponin I was 14.36. She was taken to the catheterization lab where the patient has had stenting performed. The patient has had various arrhythmias including the patient has had atrial fibrillation as well as ventricular tachycardia and ventricular fibrillation. The patient after the cardiac catheterization was transferred to the ICU. Upon arrival in the ICU the patient had a PEA arrest and code blue called. The patient subsequently had a return of spontaneous circulation. The patient currently is hypotensive. She is on 10 of dopamine. She is on Versed infusion at 7. The patient currently is ventilating and oxygenating adequately. She is on 60% FiO2 with 5 of PEEP. The patient appears to have vomited. There is a vomitus around her face and neck. The patient had the same brownish discharge from the OG tube as well. The patient is on the ventilator and therefore is unable to provide a further history or review of systems. PAST MEDICAL HISTORY: Coronary artery disease, has had coronary artery stents, last available echocardiogram is from December, which shows a left ventricular ejection fraction of 65-70% without right heart pressure elevation, right heart pressures of 30, breast cancer. She is reported to have had chemotherapy. I do not have full details available. Also, history of melanoma, hysterectomy, tonsillectomy, appendectomy and rhabdomyolysis. She has had a [facility] . I do not have details available. ALLERGIES: THE PATIENT IS REPORTED TO HAVE HAD HIVES WITH PENICILLIN. THERE IS PREVIOUS DOCUMENTATION OF ADMINISTRATION OF CEFTRIAXONE IN 2011, [place] [address] CONSULTATION Name: CELESTINEKIKE Ralph Room: [address] IN [facility]#: [id number] Admission: 04/10/20 Attend Phys: Mathieu Ramirez MD Discharge: 04/12/20 Date of : 45 Report #: [id number] AT THAT TIME KNOWN TO HAVE A REACTION TO PENICILLIN ALREADY. There is no adverse reaction to ceftriaxone documented. This is in [facility]. FAMILY HISTORY: There is no pertinent family history. SOCIAL HISTORY: There is no known history of smoking, ethanol abuse or drug abuse. CURRENT MEDICATIONS: List in [facility] reviewed. HOME MEDICATIONS: List in [facility] reviewed. PHYSICAL EXAMINATION: GENERAL: She is sedated with propofol. VITAL SIGNS: Pulse is 90, blood pressure 100/60. She is on a dopamine infusion at 10. She is saturating in the mid to high 90s. She is on 60% FiO2 She is afebrile, last recorded last temperature is 35.8. She is overbreathing the ventilator. She is on a tidal volume of 450 with an AC set rate of 12. She is breathing in the high teens to 20. Tidal volume 450, PEEP is 5. HEENT: Head is normocephalic and atraumatic. Endotracheal tube is in good position. There is a brownish discharge from her OG. There is also brownish material in the neck and around her face. NECK: Does not show raised JVP, asymmetry, mass or lymph nodes. CHEST: Symmetrical expansion on inspection and palpation. On auscultation, chest is clear. HEART: Regular. There is no murmur. ABDOMEN: Soft and nontender. EXTREMITIES: Lower extremities show no edema and no calf tenderness. SKIN: Dry and intact. NEUROLOGICAL: Limited due to sedation. LABORATORY DATA: The patient's arterial blood gas performed earlier shows a metabolic acidosis. Oxygenation is adequate. The patient's chest x-ray shows a new opacity in the right middle lobe consistent with aspiration pneumonitis. The patient's CBC as well as chemistries are in [facility]. These are reviewed. Potassium is towards the lower end of normal range at 3.7. The patient does have a right femoral triple lumen catheter. ASSESSMENT AND PLAN: 1. Acute respiratory failure. We will continue current ventilator settings. We will obtain an arterial blood gas and then reassess. In case the patient's significant metabolic acidosis persists, then in that case, I would consider sodium bicarbonate. It is possible that this is related to her arrhythmias and cardiac arrest and may settle without bicarb, considering the patient is significantly hypotensive and on dopamine infusion for now, I continued with Versed. We will start a fentanyl drip if as a result Versed needs to decrease [address] [place] [address] CONSULTATION Name: CELESTINEKIKE Ralph Room: [address] IN ..#: [id number] Admission: 04/10/20 Attend Phys: Mathieu Ramirez MD Discharge: 04/12/20 Date of : 45 Report #: [id number] and her blood pressure does come up, then I will later consider switching her over to either propofol or Precedex. We will titrate down FiO2 as tolerated. 2. Cardiac arrest. I would defer to the Cardiology Service as to whether the patient is appropriate for Code ICE. 3. Acute myocardial infarction with hypotension. If the patient continues to oxygenate and ventilate adequately, then I will be inclined to give her more IV fluids. Await further information from the Cardiology Service regarding the patient's current left ventricular ejection fraction. In case a pressor is needed to be continued, then consideration could be given to switching dopamine over to norepinephrine, but I would defer to the Cardiology Service. 4. Pulmonary infiltrates/aspiration pneumonitis. There is a new radiopaque density in the right middle lobe consistent with aspiration. The patient also has brownish material around her face and neck as mentioned above. I would have ordered Unasyn or Zosyn. However, the patient has a PENICILLIN ALLERGY. She has previous documentation of ceftriaxone administration. The same with metronidazole are ordered. 5. Atrial fibrillation/ventricular tachycardia/ventricular fibrillation mostly defer to the Cardiology Service. Considering arrhythmias I ordered extra 20 mEq of potassium. She is otherwise on electrolyte replacement protocol. 6. Deep vein thrombosis prophylaxis. Would defer to the Cardiology and primary services. 7. The patient is critically ill at this time. Total time spent providing critical care to this patient today is 45 minutes. <ELECTRONICALLY SIGNED> By: Jimmy Penn MD 04/15/20 0851 [id number] Penn MD /nt
--- NOTE | 2020-04-15 14:39 | CON ---
[address] [address] CONSULTATION Name: KIKE SPRAGUE Room: [address] IN ..#: [id number] Admission: 04/10/20 Attend Phys: Mathieu Ramirez MD Discharge: 04/12/20 Date of : 45 Report #: [id number] THIS REPORT FOR: //name// cc: Tyler Gutierrez Steve T. DO THIS REPORT FOR: //name// CC: Mathieu Gutierrez CONSULT REQUESTED BY: Mathieu Ramirez MD REASON FOR CONSULTATION: Acute kidney injury. HISTORY OF PRESENT ILLNESS: A 74-year-old female admitted with an acute MT, was taken urgently to the cardiac [employer] and had an RCA drug-eluting stent placed. She was hemodynamically unstable and had a PEA cardiac arrest. She was intubated and hypotensive, started on Levophed and dopamine. Currently, remains on these 2 pressors. I am asked to see her because of a rise in her serum creatinine, creatinine was 0.8 on 04/10/2020, up to 2.3 now and she is anuric. She is also very acidotic. PH has been as low as 7.15. She has received pushes of bicarbonate and is currently on a bicarbonate drip. Her skin is mottled. She is unresponsive. Neurology consult has been requested. She also has developed ischemia of her right lower extremity and Vascular Surgery is following. She is also being followed by Pulmonology and Cardiology. Family is present at the bedside and helped provide some of the history. REVIEW OF SYSTEMS: Constitutional, psych, heme, eyes, ENT, respiratory, cardiac, GI, , endocrine, all negative except as documented above and as best can be ascertained from chart review. PAST MEDICAL HISTORY: Coronary artery disease, hypertension, dyslipidemia, history of Graves disease and hypothyroidism, now history of breast cancer, melanoma. SOCIAL HISTORY: Former smoker. FAMILY HISTORY: Has son and daughter and she is . PHYSICAL EXAMINATION: VITAL SIGNS: Blood pressure is 88/61, pulse 76, respirations 16, temperature 37.4. GENERAL: Unresponsive. EYES: Closed. EARS: Externally normal. CARDIOVASCULAR: [place] [address] CONSULTATION Name: KIKE SPRAGUE Room: [address]#: [id number] Admission: 04/10/20 Attend Phys: Mathieu Ramirez MD Discharge: 04/12/20 Date of : 45 Report #: [id number] LUNGS: Diminished. ABDOMEN: Soft. MUSCULOSKELETAL/DERMATOLOGY: Skin is mottled. Right lower extremity is cool. Pulses are not palpable. GENITOURINARY: King catheter is in place. NEUROLOGIC: Intubated and not responsive. LABORATORY DATA: White cell count 16.4, hemoglobin 7.3, platelets is 161. Sodium 139, potassium 4.6, chloride 99, bicarbonate 13, BUN 22, creatinine 2.3, glucose 344, calcium 5.4, magnesium 2.3, albumin 2.7. ASSESSMENT: 1. Acute kidney injury/acute tubular necrosis in the setting of hypotension, cardiac arrest with pulseless electrical activity, and non-ST elevation myocardial infarction. Urinalysis noted on 04/10/2020, creatinine 0.8. Creatinine on 04/12/2020 was 2.3. 2. Severe metabolic acidosis with a pH as low as 7.15 and bicarbonate currently of 10 with an elevated anion gap. 3. Anemia. Hemoglobin on 04/10/2020 was 14, is now 7.3. She does have some dark material, but only 100 mL coming from her NG. 4. Hypocalcemia. Calcium 5.4. 5. Hyperphosphatemia. Phosphorus 3.7. 6. Elevated liver functions, likely shock. 7. Hematuria. 8. Pulseless electrical activity cardiac arrest. 9. Shock, on two vasopressors as of 04/12/2020. 10. Non-ST elevation myocardial infarction, status post RCA stent. 11. Hypothyroidism. 12. History of breast cancer and melanoma with metastatic disease. 13. Coagulopathy. 14. Right lower extremity limb ischemia. 15. Pulmonary infiltrates on chest x-ray. PLAN: 1. IV calcium ordered. 2. Her metabolic acidosis is secondary to hyperperfusion, her lactic acid is 3. She is currently on bicarbonate drip. We will continue that. 1400 ____ has been ordered. We will not order a renal ultrasound at this time, but if family wishes to continue full care, we will consider ordering that. Her prognosis is very poor at this time. Neurology has been consulted as she likely has anoxic brain injury and per my discussion with family, they are leaning toward a less aggressive measures. We did discuss dialysis and possible CRRT. I would not recommend that at this time. I think her prognosis is grave and palliative care/comfort measures would be most appropriate. Case was discussed with Dr. Penn as well. The patient is critically ill. [address] [address] CONSULTATION Name: KIKE SPRAGUE Room: [address] IN [place].#: [id number] Admission: 04/10/20 Attend Phys: Mathieu Ramirez MD Discharge: 04/12/20 Date of : 45 Report #: [id number] Thirty-five minutes of critical care time was spent. Thank you for requesting my opinion in the care and management of this patient. <ELECTRONICALLY SIGNED> By: Chasity Ryder MD 04/15/20 1439 [id number] Ryder MD /nt
== END 2020-04-12 14:52 | DRG 246 ==
LOC: M.CL 10:46 → M.ERS 10:46 → M.TBA-CV 12:45 → M.ICU 12:45
PROVIDERS: Internal Medicine; Internal Medicine Critical Care Medicine; Personal Emergency Response Attendant; ADMIT Internal Medicine; ATTEND Internal Medicine
PROC: 5A1935Z Respiratory Ventilation, Less than 24 Consecutive Hours (ICD-10-PCS; principal; 2020-04-10)
PROC: 4A023N7 Measurement of Cardiac Sampling and Pressure, Left Heart, Percutaneous Approach (ICD-10-PCS; principal; 2020-04-10)
PROC: 0BH17EZ Insertion of Endotracheal Airway into Trachea, Via Natural or Artificial Opening (ICD-10-PCS; principal; 2020-04-10)
PROC: 027034Z Dilation of Coronary Artery, One Artery with Drug-eluting Intraluminal Device, Percutaneous Approach (ICD-10-PCS; principal; 2020-04-10)
PROC: 5A2204Z Restoration of Cardiac Rhythm, Single (ICD-10-PCS; principal; 2020-04-10)
PROC: B215YZZ Fluoroscopy of Left Heart using Other Contrast (ICD-10-PCS; principal; 2020-04-10)
PROC: B211YZZ Fluoroscopy of Multiple Coronary Arteries using Other Contrast (ICD-10-PCS; principal; 2020-04-10)
DX: I21.3 ST elevation (STEMI) myocardial infarction of unspecified site (principal); J96.01 Acute respiratory failure with hypoxia; N17.0 Acute kidney failure with tubular necrosis; J69.0 Pneumonitis due to inhalation of food and vomit; R65.11 Systemic inflammatory response syndrome (SIRS) of non-infectious origin with acute organ dysfunction; D65 Disseminated intravascular coagulation [defibrination syndrome]; G93.1 Anoxic brain damage, not elsewhere classified; I47.2 Ventricular tachycardia; D68.9 Coagulation defect, unspecified; E44.0 Moderate protein-calorie malnutrition; C90.01 Multiple myeloma in remission; R57.0 Cardiogenic shock; Z20.828 Contact with and (suspected) exposure to other viral communicable diseases; I25.10 Atherosclerotic heart disease of native coronary artery without angina pectoris; E78.00 Pure hypercholesterolemia, unspecified; I10 Essential (primary) hypertension; M81.0 Age-related osteoporosis without current pathological fracture; E78.5 Hyperlipidemia, unspecified; I24.9 Acute ischemic heart disease, unspecified; I48.91 Unspecified atrial fibrillation; I95.9 Hypotension, unspecified; I49.01 Ventricular fibrillation; D64.9 Anemia, unspecified; E03.9 Hypothyroidism, unspecified; E83.51 Hypocalcemia; E83.39 Other disorders of phosphorus metabolism; M79.7 Fibromyalgia; I77.1 Stricture of artery; Z95.5 Presence of coronary angioplasty implant and graft; Z68.27 Body mass index [BMI] 27.0-27.9, adult; Z87.891 Personal history of nicotine dependence; Z90.49 Acquired absence of other specified parts of digestive tract; Z88.6 Allergy status to analgesic agent; Z88.0 Allergy status to penicillin; Z90.710 Acquired absence of both cervix and uterus; Z85.3 Personal history of malignant neoplasm of breast; Z79.899 Other long term (current) drug therapy; Z85.820 Personal history of malignant melanoma of skin; Z66 Do not resuscitate